=== PATIENT | female | born 1970 | race African-American/Black ===

== ENCOUNTER 2019-09-13 16:51 | Emergency (ER) | payer OTHER ==
[~2019-09-13] VITALS: Ht 165.1 cm; Wt 82.1 kg
[2019-09-13] MEDS ORDERED: AMLO10TA7 PO (17:24)
--- NOTE | 2019-09-13 17:35 | NUR ---
PATIENT WAS MSE BY DR THACKER IN ROOM 05A.
[2019-09-13 18:02] LABS: *BILIRUBIN,URIN NEGATIVE (NEGATIVE); *CLARITY,URINE CLEAR (CLEAR); *COLOR,URINE YELLOW (YELLOW); *KETONES,URINE NEGATIVE (NEGATIVE); *UROBILINOGEN,URINE 0.2 E.U./dl (NORMAL); LEUKOCYTE ESTERASE ,URINE NEGATIVE (NEGATIVE); NITRITE, URINE NEGATIVE (NEGATIVE); UGLUCOSE NEGATIVE (NEGATIVE)
[2019-09-13 18:04] LABS: *BLOOD, URINE TRACE (NEGATIVE)
[2019-09-13 18:09] LABS: RBC,URINE 0-3 /HPF (0-3); SQUAMOUS EPITHELIAL CELL,UR FEW /HPF (NONE SEEN); WBC,URINE NONE SEEN /HPF (0-3)
[2019-09-13 18:25] LABS: *URINE HCG, QUAL NEGATIVE (NEGATIVE)
--- NOTE | 2019-09-13 18:39 | NUR ---
Patient discharged to home in stable condition. Written and verbal after care instructions given. Patient verbalizes understanding of instructions. Stressed follow up or return to ER for worsening s/s.
[2019-09-13 20:06] VITALS: BP 140/86
== END 2019-09-13 19:00 | disposition home or self-care (01) ==
LOC: ER 16:58
DX: H66.92 Otitis media, unspecified, left ear (principal); G89.29 Other chronic pain; R10.30 Lower abdominal pain, unspecified; Z59.0 Homelessness
CPT/HCPCS: 84703; A4663